=== PATIENT | male | born 1985 | race Caucasian/White ===

== ENCOUNTER 2016-08-15 20:18 | Emergency (ER) | payer BC ==
[~2016-08-15] VITALS: Ht 180.3 cm; Wt 97.5 kg
[~2016-08-15 20:18] MED LIST: DULO20CA PO; LAMO200T2 PO; OXYC-133 PO
[2016-08-15] MEDS ORDERED: diphenhydrAMINE 50 MG/1 ML VIAL IM ONE (23:30)
[2016-08-15] MEDS ORDERED: HYDROMORPHONE 1 MG/1 ML DISP.SYRIN IM ONE (23:30)
[2016-08-15] MEDS ORDERED: diphenhydrAMINE 50 MG/1 ML VIAL ONE (23:55)
[2016-08-15] MEDS ORDERED: HYDROMORPHONE 1 MG/1 ML DISP.SYRIN ONE (23:55)
[2016-08-16] MEDS ORDERED: HYDROMORPHONE 1 MG/1 ML DISP.SYRIN IM ONE (01:45)
[2016-08-16] MEDS ORDERED: diphenhydrAMINE 50 MG/1 ML VIAL IM ONE (01:45)
[2016-08-16] MEDS ORDERED: diphenhydrAMINE 50 MG/1 ML VIAL ONE (01:54)
[2016-08-16] MEDS ORDERED: HYDROMORPHONE 1 MG/1 ML DISP.SYRIN ONE (01:54)
--- NOTE | 2016-08-16 02:07 | NUR ---
Patient discharged to home in stable conditon. Written and verbal after care instructions given. Patient verbalizes understanding of instructions. Ambulated from ER with stable gait, patient has Knee brace from home. Applied to left knee by patient with CMS WNL. Educated not to drive or operate heavy machinery due to recent opiate intake. patient has [facility] awaiting outside ER. Will be driven home by [facility]. All belongings taken home by patient.
[2016-08-16 02:10] VITALS: BP 128/77
== END 2016-08-16 02:11 | disposition home or self-care (01) ==
LOC: ER 20:20
DX: M23.92 Unspecified internal derangement of left knee (principal); F32.9 Major depressive disorder, single episode, unspecified; F10.20 Alcohol dependence, uncomplicated
CPT/HCPCS: 73562; A4663; J1170; J1200